=== PATIENT | male | born 1980 | race Caucasian/White ===

== ENCOUNTER 2020-03-18 16:32 | Emergency (ER) | payer MEDICARE, MEDICAID, SELFPAY ==
--- NOTE | ~2020-03-18 | XR_ITS ---
EXAMINATION: XR hand RT min 3V DATE: 03/18/2020 17:32 INDICATION: Right hand dog bite. TECHNIQUE: 3 views of right hand were obtained. COMPARISON: None. FINDINGS: Bone alignment is normal. No fracture. Joint spaces are well maintained. IMPRESSION: 1. No fracture or radiopaque foreign body. Reviewed, dictated and finalized at location A.
--- NOTE | ~2020-03-18 | XR_ITS ---
EXAMINATION: XR forearm RT 2V DATE: 03/18/2020 17:32 INDICATION: Right forearm dog bite. TECHNIQUE: 2 views of right forearm were obtained. COMPARISON: None. FINDINGS: Bone alignment is normal. No fracture. Joint spaces are well maintained. IMPRESSION: 1. No fracture or radiopaque foreign body. Reviewed, dictated and finalized at location A.
[2020-03-18 16:54] VITALS: BP 112/74; PULSE 78; RESP 16; TEMP 37.7; O2SAT 99
--- NOTE | 2020-03-18 17:05 | ED.GENADULT ---
HPI - General Adult General Chief complaint: Animal Bite Stated complaint: dog bite Time Seen by Provider: 03/18/20 17:06 Source: patient Mode of arrival: ambulatory Limitations: no limitations History of Present Illness HPI narrative: 39-year-old male patient presents to the [facility] with complaints of a dog bite to the right hand and right forearm that happened about midmorning this morning. Patient states that he does not know who the block dog belongs to. Patient states he knows he has had a tetanus shot within the last 10 years but unsure if it is been less than 5 years. Patient states that afterwards when the bite occurred he did go home and clean it with alcohol. Patient states he has increased pain starting distended along with decrease in range of motion to the right wrist and hand. Patient states he does take extended release morphine for chronic pain and did take an extra 1 today for pain. Related Data Home Medications Medication Instructions Recorded Confirmed atorvastatin 40 mg PO DAILY 03/18/20 03/18/20 clopidogrel 75 mg PO DAILY 03/18/20 03/18/20 labetalol 03/18/20 03/18/20 lamotrigine 100 mg PO HS 03/18/20 03/18/20 lamotrigine 150 mg PO DAILY 03/18/20 03/18/20 morphine 15 mg PO DAILY 03/18/20 03/18/20 morphine 30 mg PO DAILY 03/18/20 03/18/20 verapamil 120 mg PO DAILY 03/18/20 03/18/20 Allergies Allergy/AdvReac Type Severity Reaction Status Date / Time NSAIDS (Non-Steroidal AdvReac Unknown Verified 03/18/20 17:14 Anti-Inflamma Review of Systems Review of Systems: Narrative: CONSTITUTIONAL: Denies fever, chills, or sweats. EYES: Denies visual changes, redness, or discharge. ENT: Denies rhinorrhea, congestion, sore throat, or otalgia. CARDIOVASCULAR: Denies chest pain, palpitations, or edema. RESPIRATORY: Denies cough or dyspnea. GASTROINTESTINAL: Denies abdominal pain, nausea, vomiting, or diarrhea. GENITOURINARY: Denies dysuria or hematuria. SKIN: Denies rash or itching. Positive dog bite to right hand and right forearm MUSCULOSKELETAL: Denies back pain, joint pain, or myalgia. NEUROLOGIC: Denies headache, numbness, or weakness. PSYCHIATRIC: Denies anxiety or depression. PMFSH Past Medical History Medical History (Updated 03/18/20 @ 17:54 by KEILA Morgan) CVA (cerebral vascular accident) Musculoskeletal disorder Pain from fall all over chronic pain Neurologic abnormality Head injury 2010 Social History Social History Gender identity (if verbalized by the patient): Male Comments At the time of my signature I agree with nursing past medical history, surgical, social, and family history. There is no relevant family history pertinent to the presenting complaint. Exam Narrative: Exam Narrative: GENERAL: Well-appearing, well-nourished, and in no acute distress. HEAD: Normocephalic, atraumatic. EYES: PERRLA and EOMI. ENT: Nares clear, no rhinorrhea or epistaxis. Mucous membranes moist. NECK: Supple. No lymphadenopathy CHEST: Clear to auscultation. No respiratory distress. HEART: Regular rate and rhythm. No murmur heard. Normal peripheral pulses. ABDOMEN: Soft, nontender, nondistended, normal active bowel sounds. EXTREMITIES: The R hand is without obvious asymmetry or deformity when compared to the L hand. No swelling, erythema, atrophy, or obvious deformity. Patient has about 6 or 7 wounds to the dorsal side of the right hand. No deep wounds noted but does appear to be scabbed over. There is another wound to the palm side of the hand on the ulnar side that appears to be a puncture wound and another puncture wound noted to the right forearm on the ulnar side. No nail avulsion, tissue avulsion, partial or complete amputation, subungual hematoma, bony deformity. Normal cascade of fingers. Decreased flexion of right wrist, normal extension of fingers. FDS and FDP intact aganist restistance. No focal fullness, thobbing pain, swelli
[2020-03-18] MEDS: TETANUS,DIPHTHERIA,AC PERTUSSIS ADULT (0.5 ML) BOOSTRIX IM (17:34)
== END 2020-03-18 17:58 | disposition home or self-care (01) ==
PROVIDERS: Emergency Provider Nurse Practitioner Family; PCP Internal Medicine
DX: S61.451A Open bite of right hand, initial encounter (principal); S51.851A Open bite of right forearm, initial encounter; W54.0XXA Bitten by dog, initial encounter; Z23 Encounter for immunization; Z86.73 Personal history of transient ischemic attack (TIA), and cerebral infarction without residual deficits
CPT/HCPCS: 73090; 73130; 90471; 90715; 99213; G0463

== ENCOUNTER 2020-08-17 11:59 | Emergency (ER) | payer MEDICARE, MEDICAID, SELFPAY ==
--- NOTE | ~2020-08-17 | XR_ITS ---
XR wrist LT 2V DATE: 08/17/2020 13:19 INDICATION: Injury, pain TECHNIQUE: 2 lateral view COMPARISON: August 17, 2020 right hand FINDINGS: Normal alignment of the radius and ulna at the wrist joint is shown in this comparison view of the left wrist. IMPRESSION: Suspected posterior dislocation of the ulna at the right wrist Reviewed, dictated and finalized at location A. 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
--- NOTE | ~2020-08-17 | XR_ITS ---
XR hand RT min 3V DATE: 08/17/2020 12:37 INDICATION: Injury, pain TECHNIQUE: 3 views COMPARISON: 03/18/2020 right hand FINDINGS: There is suggestion of posterior dislocation of the ulna at the radial ulnar joint. Conside r repeat true lateral projection and comparison is of the left wrist as clinically appropriate. Otherwise no fracture or dislocation, periosteal reaction or bone destruction is evident. IMPRESSION: Possible posterior dislocation of the ulna at the wrist joint; recommend true lateral rep eat view and comparison views of left breast as clinically appropriate Reviewed, dictated and finalized at location A. RUNNER IMPRESSION: Possible posterior dislocation of the ulna at the wrist joint; duane mmend true lateral repeat view and comparison views of left breast as clinicall y appropriate
[2020-08-17 12:23] VITALS: BP 144/86; PULSE 73; RESP 16; TEMP 36.6; O2SAT 99
--- NOTE | 2020-08-17 12:40 | ED.UPPEXIN ---
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 He is on Plavix, blood pressure and cholesterol medication for stroke prevention. He has some slowness of speech but has good affect, he uses a cane to help him walk for both balance and endurance, states his chronic right-sided weakness. Related Data Home Medications Medication Instructions Recorded Confirmed atorvastatin 40 mg PO DAILY 08/17/20 08/17/20 clopidogrel 75 mg PO DAILY 08/17/20 08/17/20 lamotrigine 100 mg PO HS 08/17/20 08/17/20 lamotrigine 150 mg PO DAILY 08/17/20 08/17/20 morphine 15 mg PO DAILY 08/17/20 08/17/20 morphine 30 mg PO DAILY 08/17/20 08/17/20 pregabalin 150 mg PO DAILY 08/17/20 08/17/20 Allergies Allergy/AdvReac Type Severity Reaction Status Date / Time NSAIDS (Non-Steroidal AdvReac Severe Blister Verified 08/17/20 15:11 Anti-Inflamma Review of Systems Review of Systems: Narrative: CONSTITUTIONAL: Denies fever, chills, sweats. EYES: Denies visual changes, redness, discharge. ENT: Denies rhinorrhea, congestion, sore throat, otalgia. CARDIOVASCULAR: Denies chest pain, palpitations, edema. RESPIRATORY: Denies dyspnea, wheezing, cough GASTROINTESTINAL: Denies abdominal pain, nausea, vomiting, diarrhea. GENITOURINARY: Denies dysuria, hematuria, abnormal discharge SKIN: Denies rash or itching. NEUROLOGIC: Denies numbness, or focal weakness. PSYCHIATRIC: Denies anxiety or depression. Right wrist/hand pain due to torsion with wrench PMFSH Past Medical History Medical History CVA (cerebral vascular accident) Musculoskeletal disorder Pain from fall all over chronic pain Neurologic abnormality Head injury 2011 Social History Social History (Updated 08/17/20 @ 12:56 by Aleja Clement CNP) Smoking packs per day: 0.5 Smoking cigarettes per day: 10.0 Smoking status: Current every day smoker Alcohol intake: current Gender identity (if verbalized by the patient): Male Comments At time of signature, I agree with nursing past medical, surgical, social and family history. There is no relevant family history pertinent to the presenting complaint. Has diagnosis of hypertension and is on blood pressure medication Exam Narrative: Exam Narrative: GENERAL: This is a well-nourished, well-developed patient, in mild distress. HEAD: normocephalic, atraumatic. EYES: Sclera clear/white. Vision is grossly intact. EARS: External ears normal. Hearing grossly intact. NOSE: External nose normal without nasal discharge, nares without redness, no rhinorrhea. THROAT: Mucous membranes moist, NECK: Neck supple, non-tender CARDIOVASCULAR: Regular rate and rhythm without murmurs, gallops, or rubs. RESPIRATORY: Clear to auscultation. Breath sounds equal bilaterally. No wheezes, rales, or rhonchi. GASTROINTESTINAL: Abdomen soft, SKIN: warm, intact with no suspicious lesions or rash, good texture and turgor. NEURO: awake, alert, and oriented to person, place and time. There were no obvious focal neurologic abnormalities. Steady gait EXTREMITIES: Normal range of motion on L, R wrist- slow finger opposition, unable to flex wrist, pronate/suppinate BACK: Nontender without deformity Course Course Emergency Course: Patient came here after using a wrench last night to try to finish a project and heard a pop He felt pain and has increased weakness in the right hand- limited wrist movement as described above initial Annalisa lopez
== END 2020-08-17 14:05 | disposition short-term general hospital (02) ==
PROVIDERS: Emergency Provider Nurse Practitioner; PCP Internal Medicine
DX: S63.074A Dislocation of distal end of right ulna, initial encounter (principal); X58.XXXA Exposure to other specified factors, initial encounter; Z79.01 Long term (current) use of anticoagulants; Z87.820 Personal history of traumatic brain injury; Z86.73 Personal history of transient ischemic attack (TIA), and cerebral infarction without residual deficits
CPT/HCPCS: 73100; 73130; 99214; G0463

== ENCOUNTER 2020-08-17 14:24 | Emergency (ER) | payer MEDICARE, MEDICAID, SELFPAY ==
--- NOTE | ~2020-08-17 | XR_ITS ---
EXAMINATION: XR wrist RT min 3V DATE: 08/17/2020 15:33 INDICATION: Right wrist pain TECHNIQUE: Posteroanterior, ulnar deviation, oblique, and lateral views of the right wrist were obtai tello. COMPARISON: Right hand radiographs dated 03/18/2020 and 08/17/2020 FINDINGS: Alignment is normal. No fracture. Joint spaces are normal. Small bone island at the base of the fifth metacarpal. Soft tissues are unremarkable. IMPRESSION: 1. Negative right wrist radiographs. Reviewed, dictated and finalized at location A. 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
[2020-08-17 14:29] VITALS: BP 135/81; PULSE 71; RESP 18; TEMP 36.4; O2SAT 100
--- NOTE | 2020-08-17 15:27 | ED.GENADULT ---
HPI - General Adult General Chief complaint: Extremity Injury, Upper <Valerio Patel PA-C - Last Filed: 08/17/20 16:36> Stated complaint: right wrist pain <CLIFFORD Taylor Last Filed: 08/17/20 16:36> Time Seen by Provider: 08/17/20 14:43 <CLIFFORD Taylor Last Filed: 08/17/20 16:36> Source: patient, family and old records reviewed <CLIFFORD Taylor Last Filed: 08/17/20 16:36> Mode of arrival: ambulatory <CLIFFORD Taylor Last Filed: 08/17/20 16:36> Limitations: no limitations <CLIFFORD Taylor Last Filed: 08/17/20 16:36> History of Present Illness HPI narrative: Patient is a 40-year-old male who presents for evaluation of right wrist injury that occurred last night was using pliers and was turning them when he felt a pop in the wrist which she notes he has had historically with pain at the wrist joint. Patient with history of chronic disability to the right upper extremity from a brachial plexus injury from a trauma. Patient notes the range of motion and feeling are intact and consistent with his chronic findings. Patient takes morphine at home chronically. Patient on arrival resting comfortably in the room noting minimal pain <CLIFFORD Taylor Last Filed: 08/17/20 16:36> Related Data Home medications: Home Medications Medication Instructions Recorded Confirmed atorvastatin 40 mg PO DAILY 08/17/20 08/17/20 clopidogrel 75 mg PO DAILY 08/17/20 08/17/20 lamotrigine 100 mg PO HS 08/17/20 08/17/20 lamotrigine 150 mg PO DAILY 08/17/20 08/17/20 morphine 15 mg PO DAILY 08/17/20 08/17/20 morphine 30 mg PO DAILY 08/17/20 08/17/20 pregabalin 150 mg PO DAILY 08/17/20 08/17/20 <CLIFFORD Taylor Last Filed: 08/17/20 16:36> Allergies/adverse reactions: Allergies Allergy/AdvReac Type Severity Reaction Status Date / Time NSAIDS (Non-Steroidal AdvReac Severe Blister Verified 08/17/20 15:11 Anti-Inflamma <Valerio Patel PA-C - Last Filed: 08/17/20 16:36> Review of Systems Review of Systems: All systems reviewed & are unremarkable except as noted in HPI and below <Valerio Patel PA-C - Last Filed: 08/17/20 16:36> PMFSH Past Medical History Medical History: Medical History CVA (cerebral vascular accident) Musculoskeletal disorder Pain from fall all over chronic pain Neurologic abnormality Head injury 2010 <Valerio Patel PA-C - Last Filed: 08/17/20 16:36> Social History Social History: Social History Smoking packs per day: 0.5 Smoking cigarettes per day: 10.0 Smoking status: Current every day smoker Alcohol intake: current Gender identity (if verbalized by the patient): Male <Valerio Patel PA-C - Last Filed: 08/17/20 16:36> Exam Narrative: Exam Narrative: GENERAL: Well-appearing, well-nourished, and in no acute distress. HEAD: Normocephalic, atraumatic. EYES: PERRLA and EOMI. ENT: Nares clear, no rhinorrhea or epistaxis. Mucous membranes moist. ABDOMEN: Soft, nontender, nondistended EXTREMITIES: Tenderness of the right wrist radial and ulna no obvious deformity SKIN: Warm, dry, no rash. NEURO: No focal deficits. Alert and oriented x3. Cranial nerves II through XII grossly intact. Neurovascularly intact PSYCH: Normal mood and affect. <Valerio Patel PA-C - Last Filed: 08/17/20 16:36> Course Course Emergency Course: Dedicated wrist radiographs were obtained which were not done at the urgent care showing that there is no dislocation or subluxation patient will be splinted precautionary dickinson and follow-up with primary care and orthopedic surgery <Valerio Patel PA-C - Last Filed: 08/17/20 16:36> Consultations Consultation #1: Discussed case with orthopedic surgery who recommends putting the patient in a short arm OCL and following up w
[2020-08-17 16:51] VITALS: BP 129/72; PULSE 68; RESP 18; TEMP 36.8; O2SAT 100
== END 2020-08-17 17:22 | disposition home or self-care (01) ==
PROVIDERS: Emergency Provider General Practice; PCP Internal Medicine
DX: M25.531 Pain in right wrist (principal); Z86.73 Personal history of transient ischemic attack (TIA), and cerebral infarction without residual deficits; G89.21 Chronic pain due to trauma; F17.210 Nicotine dependence, cigarettes, uncomplicated; Z87.820 Personal history of traumatic brain injury; X50.9XXA Other and unspecified overexertion or strenuous movements or postures, initial encounter
CPT/HCPCS: 73100; 73110; 73130; 99283

== ENCOUNTER 2020-08-30 07:59 | Outpatient (RCR) | payer MEDICARE, MEDICAID, SELFPAY ==
--- NOTE | 2020-08-30 09:07 | OTOPEVAL ---
OCCUPATIONAL THERAPY EVALUATION REPORT AND DISCHARGE SUMMARY 08/30/20 Cahrles is a 40 year-old, right hand dominant male that presents to outpatient OT with right wrist sprain. He has been instructed in a splint wearing schedule, using ice for pain, active ROM, and splint weaning schedule (in 4 weeks). Instructed in follow up recommendations in 4 weeks if the immobilization period does not help with his pain. He verbalizes his understanding all material. No further skilled OT indicated at this time. Thank you for referring Charles Gordon to [facility].?Please review, sign, date and return this Discharge Summary SHIVANI. I agree with and certify that the following plan of care is medically necessary. Referring Physician Date Referring Provider: Darwin Noel MD *OT Outpatient Evaluation Start: 08/30/20 08:08 Therapy Assessment Status Assessment Status Assessment Status Evaluation Outpatient Past Medical History Neurological History Hx Cerebrovascular Accident (CVA) Yes: several Hx Other Neurological Disorders Yes: head injury, TBI, right brachial plexus injury Cardiovascular History Hx Hypercholesterolemia Yes Hx Hypertension Yes Respiratory History Hx Respiratory Disorders No Significant History Gastrointestinal History Hx Gastrointestinal Disorders No Significant History Musculoskeletal History Hx Arthritis Yes Hx Crutches or Walker Use Yes: cane Query Text:If Yes, Enter Crutches, Walker, or Both in the Comment Hematological History Hx Hematological Disorders No Significant History Endocrine History Hx Endocrine Disorders No Significant History HEENT History Hx HEENT Disorders No Significant History Integumentary History Hx Skin Disorders No Significant History Reproductive History Hx Reproductive Disorders No Significant History Psychosocial History Hx Anxiety Yes Hx Depression Yes Pain History Has Past Pain Affected Your Daily Life Yes: takes morphine daily History of Long-Term Prescription Pain Yes: traumatic brain surgery Medication Use (Opiates) Evaluation Information Problem Diagnosis (R) wrist sprain Onset 08/17/20 Subjective Information Patient reports he was Query Text:As Reported By Patient/ gripping pliers and twisting Family with the wrist when he felt a pop in the wrist. He was evaluated at the ED and x-rays of the wrist and hand were negative for acute fracture. He has not had further imaging to rule out ligamentous tears. He followed up with an orthopedic surgeon which recommended immobilization and
== END 2020-11-13 09:12 | disposition home or self-care (01) ==
LOC: ANHOT 07:59
PROVIDERS: PCP Internal Medicine; Visit Provider Orthopaedic Surgery
DX: M25.531 Pain in right wrist (principal); S63.501D Unspecified sprain of right wrist, subsequent encounter
CPT/HCPCS: 97165

== ENCOUNTER 2020-10-10 14:33 | Outpatient (CLI) | payer MEDICARE, MEDICAID, SELFPAY ==
--- NOTE | ~2020-10-10 | MR_ITS ---
EXAMINATION: MR wrist RT w con DATE: 10/10/2020 16:10 INDICATION: Right wrist pain TECHNIQUE: Magnetic resonance imaging (MRI) of the right wrist was performed without intravenous cont rast but following intra-articular injection of a gadolinium contrast mixture. Details of the joint i njection have been dictated separately. Sequences performed include axial, sagittal and coronal T2-we ighted FS FSE, coronal T1-weighted FS FSE, axial T1-weighted SE, sagittal and coronal T1-weighted FS FSE and coronal FGRE 3D. COMPARISON: None FINDINGS: Intrinsic ligaments: The scapholunate ligament is normal. There is a tear of the central portion of the lunotriquetral lig ament with contrast extending extending into the midcarpal, triscaphe and second and third carpometac arpal joints. The dorsal and volar bands of the lunotriquetral ligament remain intact. Triangular fibrocartilage complex (TFCC): The triangular fibrocartilage including its foveal and styloid attachments as well as the dorsal and volar radioulnar ligaments are normal. The ulnar collateral ligament, ulnotriquetral ligament and men iscal homologue are normal. There is a tear of the extensor carpi ulnaris (ECU) subsheath along the e xtensor carpi ulnaris tendon to sublux over the ulnar rim of the ECU groove. Extensor wrist: Small amount of noncontrast enhanced fluid in the second dorsal compartment consistent mild tenosynov itis extending along the otherwise normal extensor carpi radialis longus and brevis tendons. Similar small amount of fluid consistent with mild tenosynovitis in the third dorsal compartment along the no rmal-appearing extensor pollicis longus tendon. Remaining extensor tendons of the wrist are normal. Flexor wrist: The flexor tendons of the wrist are normal. No abnormality in the carpal tunnel with normal median n erve. Guyon's canal: Guyon's canal including the ulnar nerve and artery are normal. Bones/other: Small low signal intensity bone islands at the base of the fifth metacarpal and at the distal pole of the scaphoid. Normal marrow signal. No fracture, erosions, avascular necrosis or pathologic marrow r eplacing process. Joint spaces are normal with no focal cartilage defects appreciated. IMPRESSION: 1. Tenosynovitis in the second and third dorsal compartments along the otherwise normal-appearing ext ensor carpi radialis longus and brevis and extensor pollicis longus tendons which can be seen with di stal intersection syndrome. 2. Small tear of the central portion of the lunotriquetral ligament with intact appearing dorsal and volar components of the ligament. 3. Tear of the extensor carpi ulnaris subsheath with ulnar subluxation of the tendon across the ulnar rim of the ECU groove with no evident tendinopathy, tendon tear or tenosynovitis. Reviewed, dictated and finalized at location B. IMPRESSION: 1. Tenosynovitis in the second and third dorsal compartments along the otherwis e normal-appearing extensor carpi radialis longus and brevis and extensor polli cis longus tendons which can be seen with distal intersection syndrome. 2. Small tear of the central portion of the lunotriquetral ligament with intact appearing dorsal and volar components of the ligament. 3. Tear of the extensor carpi ulnaris subsheath with ulnar subluxation of the t endon across the ulnar rim of the ECU groove with no evident tendinopathy, tend on tear or tenosynovitis.
--- NOTE | ~2020-10-10 | XR_ITS ---
EXAMINATION: XR md joint inject/asp w image DATE: 10/10/2020 15:41 INDICATION: Right wrist pain. TECHNIQUE: A time-out was performed to verify the patient's name, date of , and procedure to b e performed. The procedure including the risks, benefits, and alternatives was discussed with the pat ient. Risks discussed included bleeding and infection. The patient understood the risks and agreed to proceed. The skin overlying the right radioscaphoid joint was prepped and draped in usual sterile fa shion. Anesthetic was administered with 1% lidocaine subcutaneously. A 22 G needle was advanced und er fluoroscopic guidance into the joint. Subsequently, injectate consisting of 2 mL of 1:200 Multiha nce and 1:2 Omnipaque 240 was instilled. The needle was removed and the entry site was cleaned and d ressed. There were no immediate complications. Fluoroscopy exposure time was 0.1 minutes. The total number of images was 2. FINDINGS: Real-time fluoroscopy demonstrates the needle and contrast in the right radioscaphoid joint . IMPRESSION: 1. Successful right radioscaphoid joint injection of contrast for subsequent MR arthrography. Reviewed, dictated and finalized at location A.
== END 2020-10-10 14:34 | disposition home or self-care (01) ==
LOC: ANHIMG 14:40
PROVIDERS: PCP Internal Medicine; Visit Provider Orthopaedic Surgery
DX: M65.841 Other synovitis and tenosynovitis, right hand (principal)
CPT/HCPCS: 20605; 73222; 77002; A9577; Q9966

== ENCOUNTER 2021-07-18 19:09 | Emergency (ER) | payer MEDICARE, MEDICAID, SELFPAY ==
--- NOTE | 2021-07-18 19:15 | ED.EYEPROB ---
HPI - Eye Problem General Chief complaint: Eye Problems Stated complaint: Foreign object in eye Time Seen by Provider: 07/18/21 19:45 Source: patient and RN notes reviewed Mode of arrival: ambulatory Limitations: no limitations History of Present Illness HPI Narrative: 40-year-old male presents with concern for right eye pain. He reports prior to arrival he was making a cat litter box out of a [employer] tote when a piece of the plastic flew up and hit him in the eye. He reports pain and feeling of foreign body. He has covered the eye with a bandage so he is not able to determine if he has had vision changes. chief complaint: eye pain Related Data Home Medications Medication Instructions Recorded Confirmed atorvastatin 40 mg PO DAILY 08/17/20 10/02/20 clopidogrel 75 mg PO DAILY 08/17/20 10/02/20 lamotrigine 100 mg PO HS 08/17/20 10/02/20 lamotrigine 150 mg PO DAILY 08/17/20 10/02/20 morphine 15 mg PO DAILY 08/17/20 10/02/20 morphine 30 mg PO DAILY 08/17/20 10/02/20 pregabalin 150 mg PO DAILY 08/17/20 10/02/20 jsepfurqxm-vimbtblylnxpt-doog tablet 07/18/21 tizanidine mg 07/18/21 verapamil mg PO 07/18/21 Allergies Allergy/AdvReac Type Severity Reaction Status Date / Time NSAIDS (Non-Steroidal AdvReac Severe Blister Verified 08/17/20 15:11 Anti-Inflamma Review of Systems Review of Systems: CONSTITUTIONAL: Denies malaise, chills, sweats, or fever. EYES: Denies visual changes. Reports right eye redness and pain ENT: Denies rhinorrhea, congestion, sinus pain, otalgia or sore throat. SKIN: Denies rash or itching. NEUROLOGIC: Denies numbness, weakness, or headache. PSYCHIATRIC: Denies anxiety or depression. 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 There is no relevant family history pertinent to the presenting complaint Exam Narrative: GENERAL: Well-appearing, well-nourished, and in no acute distress. HEAD: Normocephalic, atraumatic. EYES: Left PERRLA, sclera clear, and EOMI. right sclera and conjunctivae injected. Upper and lower eyelid unremarkable, no periorbital edema noted. No foreign body noted. Corneal abrasion noted on Torres lamp exam, see note ENT: Nares clear, turbinates pink, no rhinorrhea or epistaxis. Mucous membranes moist. TM pearly babcock with sharp light reflex bilaterally; no tragal tenderness. NECK: Supple. CHEST: No respiratory distress. Speaks in full sentences. HEART: Regular rate and rhythm. SKIN: Warm, dry, no visible rash. NEURO: Alert and oriented x3. PSYCH: Normal mood and affect Course Course Emergency Course: Patient is aware of diagnosis, understands and agrees to treatment plan. Anticipatory guidance given. Patient agrees to follow-up as directed and is aware of reasons to seek care at the emergency department. Portions of this record may have been created with voice recognition software Level of Care: Express Care Visit Vital Signs Vital signs: Vital Signs Temperature 98.0 F 07/18/21 19:48 Pulse Rate 77 07/18/21 19:48 Respiratory Rate 16 07/18/21 19:48 Blood Pressure 104/85 07/18/21 19:48 Pulse Oximetry
[2021-07-18 19:48] VITALS: BP 104/85; PULSE 77; RESP 16; TEMP 36.7; O2SAT 100
--- NOTE | 2021-07-18 20:02 | PC.NURSE ---
1950 eye kit at bedside.
== END 2021-07-18 20:14 | disposition home or self-care (01) ==
PROVIDERS: Emergency Provider Nurse Practitioner; PCP Internal Medicine
DX: S05.02XA Injury of conjunctiva and corneal abrasion without foreign body, left eye, initial encounter (principal); W20.8XXA Other cause of strike by thrown, projected or falling object, initial encounter; F17.210 Nicotine dependence, cigarettes, uncomplicated; M19.90 Unspecified osteoarthritis, unspecified site; Z86.73 Personal history of transient ischemic attack (TIA), and cerebral infarction without residual deficits; Z85.9 Personal history of malignant neoplasm, unspecified
CPT/HCPCS: 99213; A9270; G0463

== ENCOUNTER 2021-09-12 18:01 | Emergency (ER) | payer MEDICARE, MEDICAID, SELFPAY ==
[2021-09-12 18:17] VITALS: BP 117/78; PULSE 71; RESP 16; TEMP 36.2; O2SAT 99
--- NOTE | 2021-09-12 18:42 | ED.WOUNDLAC ---
HPI - Wound/Laceration General Chief Complaint: Wound/Laceration Stated Complaint: Splinter in finger Time Seen by Provider: 09/12/21 18:15 Source: patient Mode of arrival: ambulatory Limitations: no limitations History of Present Illness HPI narrative: Charles Gordon is a 41 yo male with a PMH of bipolar disorder and chronic pain who comes to [facility] with complaints of a splinter in his third right proximal digit of his finger that occurred this morning, there is a tiny dot that could be an entry hole but there is no evidence of a splinter that is visible from the surface and patient states it is painful to press on Related Data Home Medications Medication Instructions Recorded Confirmed lamotrigine 100 mg PO HS 08/17/20 10/02/20 lamotrigine 150 mg PO DAILY 08/17/20 10/02/20 morphine 15 mg PO DAILY 08/17/20 10/02/20 morphine 30 mg PO DAILY 08/17/20 10/02/20 pregabalin 150 mg PO DAILY 08/17/20 10/02/20 vmemvrksdo-qyxfkxadxorre-kovw tablet 07/18/21 tizanidine mg 07/18/21 Allergies Allergy/AdvReac Type Severity Reaction Status Date / Time NSAIDS (Non-Steroidal AdvReac Severe Blister Verified 08/17/20 15:11 Anti-Inflamma Review of Systems Review of Systems: CONSTITUTIONAL: Denies fever, chills, sweats. EYES: Denies visual changes, redness, discharge. ENT: Denies rhinorrhea, congestion, sore throat, otalgia. CARDIOVASCULAR: Denies chest pain, palpitations, edema. RESPIRATORY: Denies dyspnea, wheezing, cough GASTROINTESTINAL: Denies abdominal pain, nausea, vomiting, diarrhea. GENITOURINARY: Denies dysuria, hematuria, abnormal discharge SKIN: Denies rash or itching. Patient states there is a 1 cm splinter in the palmar side of his third right finger NEUROLOGIC: Denies numbness, or focal weakness. PSYCHIATRIC: Denies anxiety or depression. 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 There is no relevant family history pertinent to the presenting complaint. Exam Narrative: GENERAL: This is a well-nourished, well-developed patient, in mild distress. HEAD: normocephalic, atraumatic. EYES: Sclera clear/white. Vision is grossly intact. EARS: External ears normal, Hearing grossly intact. NOSE: External nose normal without nasal discharge, nares without redness, no rhinorrhea. THROAT: Mucous membranes moist, NECK: Neck supple, CARDIOVASCULAR: Regular rate and rhythm without murmurs, gallops, or rubs. RESPIRATORY: Clear to auscultation. Breath sounds equal bilaterally. No wheezes, rales, or rhonchi. GASTROINTESTINAL: Not done SKIN: warm, intact with .. palmar side of proximal digit where splinter supposedly answered. NEURO: awake, alert, and oriented to person, place and time. There were no obvious focal neurologic abnormalities. Steady gait EXTREMITIES: Normal range of motion. BACK: Nontender without deformity Course Course Emergency Course: Patient here with small 1 cm splinter to right middle finger proximal digit palmar side Finger soaked for 15 minutes and peroxide and water and attempted to locate splinter there is no indication of foreign object on the superficial part of his finger although he says it is down deep in his
== END 2021-09-12 19:15 | disposition home or self-care (01) ==
PROVIDERS: Emergency Provider Nurse Practitioner; PCP Internal Medicine
DX: S61.242A Puncture wound with foreign body of right middle finger without damage to nail, initial encounter (principal); W45.8XXA Other foreign body or object entering through skin, initial encounter; M19.90 Unspecified osteoarthritis, unspecified site; Z86.73 Personal history of transient ischemic attack (TIA), and cerebral infarction without residual deficits; Z85.9 Personal history of malignant neoplasm, unspecified; F17.210 Nicotine dependence, cigarettes, uncomplicated
CPT/HCPCS: 99212; G0463

== ENCOUNTER 2022-03-09 11:15 | Emergency (ER) | payer MEDICARE, MEDICAID, SELFPAY ==
[2022-03-09 11:24] VITALS: BP 114/76; PULSE 83; RESP 16; TEMP 36.8; O2SAT 100
[2022-03-09 11:25] VITALS: BP 114/76; PULSE 83; RESP 16; TEMP 36.8; O2SAT 100
--- NOTE | 2022-03-09 11:45 | ED.EAR ---
HPI - Ear Problem General Chief complaint: Ear Stated complaint: ear pain Source: patient Mode of arrival: ambulatory Limitations: no limitations History of Present Illness HPI Narrative: Patient presents for evaluation of left-sided ear pain for the last 2 to 3 days. He states he had similar pain in the middle of February after going down to [place] and being in a pool. He saw his primary care provider who gave him a prescription for otic antibiotics. These seem to help. He had recurrence of pain within the last 2 to 3 days. He states that hearing loss preceded the pain by a day. He states he hears white noise at the present time. No fever, chills, sore throat, drainage from the ear. He smokes approximately 1 pack/day. Related Data Home Medications Medication Instructions Recorded Confirmed lamotrigine 100 mg tablet 100 mg PO HS 08/17/20 03/09/22 lamotrigine 150 mg tablet 150 mg PO DAILY 08/17/20 03/09/22 morphine 15 mg immediate release 15 mg PO DAILY 08/17/20 03/09/22 tablet morphine 30 mg tablet,extended 30 mg PO DAILY 08/17/20 03/09/22 release pregabalin 150 mg capsule 150 mg PO DAILY 08/17/20 03/09/22 roymfgaenx-zplkyxmvvvqhw-jsydntat 1 tablet PO DAILY 07/18/21 03/09/22 50 mg-325 mg-40 mg tablet tizanidine 4 mg tablet 4 mg PO DAILY 07/18/21 03/09/22 Allergies Allergy/AdvReac Type Severity Reaction Status Date / Time NSAIDS (Non-Steroidal AdvReac Severe Blister Verified 03/09/22 11:21 Anti-Inflamma Review of Systems Review of Systems: CONSTITUTIONAL: Denies fever, chills, or sweats. EYES: Denies visual changes, redness, or discharge. ENT: Reports left-sided ear pain with associated hearing loss and white noise . Denies rhinorrhea, congestion, sore throat CARDIOVASCULAR: Denies chest pain, palpitations, or edema. RESPIRATORY: Denies cough or dyspnea. GASTROINTESTINAL: Denies abdominal pain, nausea, vomiting, or diarrhea. GENITOURINARY: Denies dysuria or hematuria. SKIN: Denies rash or itching. MUSCULOSKELETAL: Denies back pain, joint pain, or myalgia. NEUROLOGIC: Denies headache, numbness, dizziness, or weakness. PSYCHIATRIC: Denies anxiety or depression. [facility] Past Medical History Medical History Arthritis Cancer CVA (cerebral vascular accident) Headache Musculoskeletal disorder Pain from fall all over chronic pain Neurologic abnormality Head injury 2011 Surgical History Surgical History H/O foot surgery H/O shoulder surgery Family History Family History Mother Family history non-contributory Social History Social History (Updated 03/09/22 @ 11:[address] 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 HEAD: Normocephalic, atraumatic. EYES: PERRLA and EOMI. ENT: Nares clear, no rhinorrhea or epistaxis. Mucous membranes moist. Oropharynx without tonsillar hypertrophy exudate or other lesions. Left ear canal is edematous with white exudate in ear canal. I am unable to visualize left TM NECK: Supple. No adenopathy or masses. No carotid bruits or JVD CHEST: Clear to auscultation. No respiratory distress. No wheezes rales or rhonchi HEART: Regular rate and rhythm. No murmur heard. Normal peripheral pulses. ABDOMEN: Soft, nontender, nondistended, normal active bowel sounds. EXTREMITIES: Normal range of motion. No edema. SKIN: Warm
== END 2022-03-09 11:50 | disposition home or self-care (01) ==
PROVIDERS: Emergency Provider Nurse Practitioner
DX: H66.92 Otitis media, unspecified, left ear (principal); H60.92 Unspecified otitis externa, left ear; F17.210 Nicotine dependence, cigarettes, uncomplicated; M19.90 Unspecified osteoarthritis, unspecified site; Z86.73 Personal history of transient ischemic attack (TIA), and cerebral infarction without residual deficits; Z85.9 Personal history of malignant neoplasm, unspecified; G89.29 Other chronic pain
CPT/HCPCS: 99213; G0463

== ENCOUNTER 2022-04-28 14:00 | Emergency (ER) | payer MEDICARE, MEDICAID, SELFPAY ==
--- NOTE | ~2022-04-28 | XR_ITS ---
XR chest 2V DATE: 04/28/2022 14:26 INDICATION: Chest pain TECHNIQUE: AP and lateral views COMPARISON: 02/01/2015 PA and lateral chest FINDINGS: Normal heart size. No hilar or mediastinal enlargement. No pulmonary infiltrate or consolid ation, pleural effusion or pulmonary vascular congestion or pneumothorax. Included skeletal structures are unremarkable. IMPRESSION: No active cardiopulmonary disease Reviewed, dictated and finalized at location [facility].
--- NOTE | ~2022-04-28 | CT_ITS ---
EXAMINATION: CT brain wo con DATE: 04/28/2022 15:33 INDICATION: Fall. Previous fall from left. Residual deficits. TECHNIQUE: Computed tomography (CT) of the head was performed without intravenous contrast. The mA wa s adjusted according to patient size. Iterative reconstruction technique was employed. Exam dose: 68 1.00 mGy-cm total exam DLP. COMPARISON: None FINDINGS: No intracranial mass lesion or hemorrhage or cerebrovascular accident is detected. No midli ne shift or mass effect. Normal ventricular size. Normal babcock-white matter differentiation. No subdur al or epidural hematoma. There is mildly compressive thickening along the lateral wall the right maxillary sinus. The mastoid air cells and included paranasal sinuses are otherwise unremarkable. No fracture or bone destruction of the cranial vault. IMPRESSION: No significant intracranial abnormality Reviewed, dictated and finalized at [facility]. Reviewed, dictated and finalized at location [facility].
[2022-04-28 14:00] VITALS: BP 123/77; PULSE 75; RESP 18; TEMP 36.6; O2SAT 99
--- NOTE | 2022-04-28 14:10 | ECG_ITS ---
Measurements Intervals [place] Rate: 67 P: 27 AL: 184 QRS: 69 QRSD: 89 T: 55 QT: 374 QTc: 396 Interpretive Statements SINUS RHYTHM NO PREVIOUS ECG AVAILABLE FOR COMPARISON Electronically Signed On 04-28-2022 16:26:21 CDT by Brayan Vidales M.D.
[2022-04-28 14:52] LABS: Basophils Absolute Auto 0.2 K/mm3 (0.0-0.1); Basophils Percent Auto 1.1 % (0.2-1.2); Eosinophils Absolute Auto 0.3 K/mm3 (0-0.3); Eosinophils Percent Auto 1.9 % (0-4.4); Hematocrit 44.9 % (42.0-52.0); Hemoglobin 15.6 g/dL (14.0-18.0); Immature Granulocyte Absolute 0.09 K/mm3 (0.00-0.031); Immature Granulocyte Percent A 0.6 % (0-0.5); Lymphocytes Absolute Auto 4.98 K/mm3 (0.9-3.2); Mean Corpuscular HGB Conc 34.7 g/dl (32-36); Mean Corpuscular Hemoglobin 29.3 pg (26-34); Mean Corpuscular Volume 84.4 fl (80-100); Mean Platelet Volume 9.9 fl (7.4-10.4); Monocytes Absolute Auto 0.6 K/mm3 (0.1-0.6); Monocytes Percent Auto 4.1 % (2.6-8.5); Neutrophils Percent Auto 59.3 % (45.5-73.1); Platelet Count Result 309 k/mm3 (150-375); Red Blood Count 5.32 M/mm3 (4.6-6.20); Red Cell Distribution Width 14.1 % (11.5-14.5); White Blood Count 15.1 K/mm3 (4.5-10.0)
[2022-04-28 15:07] LABS: INR 1.1; Prothrombin Time 13.5 Seconds (11.1-14.7)
[2022-04-28 15:08] LABS: Alanine Aminotransferase 20 U/L (6-50); Albumin Level 4.5 g/dL (3.5-5.1); Alkaline Phosphatase 60 U/L (38-126); Anion Gap 13 mmol/L (8-16); Aspartate Amino Transferase 22 U/L (17-59); Bilirubin,Total 0.3 mg/dL (0.2-1.3); Blood Urea Nitrogen 10 mg/dL (9-20); Calcium 9.5 mg/dL (8.4-10.2); Carbon Dioxide 24 mmol/L (22-30); Chloride 103 mmol/L (98-107); Estimated CRCL calculation 108 ml/min; Estimated Glomerular Filt Rate > 60; Glucose 102 mg/dL (65-110); Lipase 71 U/L (23-300); Potassium 3.8 mmol/L (3.4-5.0); Sodium 140 mmol/L (137-145)
--- NOTE | 2022-04-28 15:15 | ED.GENADULT ---
HPI - General Adult General Chief complaint: Chest Pain Stated complaint: heart pain Time Seen by Provider: 04/28/22 14:05 History of Present Illness HPI narrative: This is a 41-year-old male with history of traumatic brain injury presenting ED with chest pain. Patient has a complicated medical history due to his TBI. Communication is limited due to his TBI. Patient says that starting at 12 pm he started to have chest pain on the sternum that radiates to his right arm and neck. He was sitting on the porch smoking a cigarette when it happened. It is 10/10 intensity. Pain is constant and getting worse. He says he has never experienced pain like this before there are no exacerbating or alleviating factors. His is in the room says that he has episodes of chest pain approximately once a month. 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 The patient denies diaphoresis, nausea vomiting or exertional component to his pain. The patient took 75 mg of morphine this morning for right-sided body pain. The patient has mild right-sided weakness which occurs when he has his migraines. Patient states that he had a migraine this morning Patients Neurologist is Dr. Willard. Related Data Home Medications Medication Instructions Recorded Confirmed lamotrigine 100 mg tablet 100 mg PO HS 08/17/20 03/09/22 lamotrigine 150 mg tablet 150 mg PO DAILY 08/17/20 03/09/22 morphine 15 mg immediate release 15 mg PO DAILY 08/17/20 03/09/22 tablet morphine 30 mg tablet,extended 30 mg PO DAILY 08/17/20 03/09/22 release pregabalin 150 mg capsule 150 mg PO DAILY 08/17/20 03/09/22 cejpegivox-pzjmhiufhkfsr-uxwykcza 1 tablet PO DAILY 07/18/21 03/09/22 50 mg-325 mg-40 mg tablet tizanidine 4 mg tablet 4 mg PO DAILY 07/18/21 03/09/22 Allergies Allergy/AdvReac Type Severity Reaction Status Date / Time NSAIDS (Non-Steroidal AdvReac Severe Blister Verified 03/09/22 11:21 Anti-Inflamma Review of Systems Review of Systems: CONSTITUTIONAL: Denies night sweats. EYES: No eye pain ENT: Denies rhinorrhea CARDIOVASCULAR: Denies palpitations RESPIRATORY: Denies hemoptysis GASTROINTESTINAL: Denies hematemesis GENITOURINARY: Denies hematuria. SKIN: Denies rash MUSCULOSKELETAL: Denies myalgia. NEUROLOGIC: Denies weakness. 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 Head atraumatic. EYES: PERRLA/EOMI, NOSE: Normal no drainage NECK: Supple, Trachea midline RESPIRATORY: CTAB, No increased work of breathing. CARDIOVASCULAR: S1S2 appreciated ABDOMINAL: Soft, nontender, nondistended, MUSCULOSKELETAl: No obvious deformities NEURO: Alert. cranial nerves 2-12 grossly intact. Strength in the right arm and right leg is 4/5, strength in the left arm left leg is 5/5. decreased sensation in the right leg. patient has intention tremor of the right arm, c
[2022-04-28 15:19] LABS: Troponin I < 0.012 ng/mL (0.000-0.034)
[2022-04-28 16:00] VITALS: BP 128/80; PULSE 82; RESP 16; TEMP 36.8; O2SAT 100
[2022-04-28] MEDS: methocarbamoL 750 MG TABLET 1500 MG PO (16:19)
[2022-04-28 17:00] VITALS: BP 122/68; PULSE 60; RESP 16; O2SAT 100
== END 2022-04-28 17:12 | disposition home or self-care (01) ==
PROVIDERS: Emergency Provider Emergency Medicine; PCP Internal Medicine
DX: R07.89 Other chest pain (principal); G43.109 Migraine with aura, not intractable, without status migrainosus; S09.90XS Unspecified injury of head, sequela; R29.818 Other symptoms and signs involving the nervous system; M19.90 Unspecified osteoarthritis, unspecified site; F17.210 Nicotine dependence, cigarettes, uncomplicated; Z86.73 Personal history of transient ischemic attack (TIA), and cerebral infarction without residual deficits; X58.XXXS Exposure to other specified factors, sequela
CPT/HCPCS: 36415; 70450; 71046; 80053; 83690; 84484; 85025; 85610; 85730; 93005; 96365; 99284; A9270; J0131

== ENCOUNTER 2024-11-10 10:42 | Emergency (ER) | payer MEDICARE, BC, SELFPAY ==
[2024-11-10 10:56] VITALS: BP 121/78; PULSE 80; RESP 16; TEMP 36.4; O2SAT 99
--- NOTE | 2024-11-10 11:06 | ED.GENADULT ---
HPI - General Adult General Chief complaint: Skin/Abscess/Foreign Body Stated complaint: Rash/Skin Issues Time Seen by Provider: 11/10/24 11:06 Source: patient Mode of arrival: ambulatory Limitations: no limitations History of Present Illness HPI narrative: 44-year-old male presents with complaint of itchy rash for several weeks. Patient starts that rash started as a larger oval spot to his back and then spread with smaller oval spots. Nonpainful. All systems reviewed and negative except as noted above. Related Data Home Medications ?Medication ?Instructions ?Recorded ?Confirmed ?Last Taken ?Type lamotrigine 150 mg tablet 150 mg PO DAILY 08/17/20 03/09/22 Unknown History pregabalin 150 mg capsule 150 mg PO DAILY 08/17/20 03/09/22 Unknown History vldzastzke-uaqlvnfsltnod-fwuzvwof 1 tablet PO DAILY 07/18/21 03/09/22 Unknown History 50 mg-325 mg-40 mg tablet tizanidine 4 mg tablet 4 mg PO DAILY 07/18/21 03/09/22 Unknown History divalproex 125 mg tablet,delayed mg PO 11/10/24 Unknown History release topiramate 25 mg tablet mg 11/10/24 Unknown History tramadol 50 mg tablet mg 11/10/24 Unknown History Allergies Allergy/AdvReac Type Severity Reaction Status Date / Time NSAIDS (Non-Steroidal AdvReac Severe Blister Verified 11/10/24 10:55 Anti-Inflamma Review of Systems Review of Systems: CONSTITUTIONAL: Denies fever, chills, or sweats. EYES: Denies visual changes, redness, or discharge. ENT: Denies rhinorrhea, congestion, sore throat, or otalgia. CARDIOVASCULAR: Denies chest pain, palpitations, or edema. RESPIRATORY: Denies cough or dyspnea. GASTROINTESTINAL: Denies abdominal pain, nausea, vomiting, or diarrhea. GENITOURINARY: Denies dysuria or hematuria. SKIN: Reports rash and itching. MUSCULOSKELETAL: Denies back pain, joint pain, or myalgia. NEUROLOGIC: Denies headache, numbness, or weakness. PSYCHIATRIC: Denies anxiety or depression. All other systems reviewed are negative, except as documented in HPI. [facility] Past Medical History Medical History Arthritis Cancer CVA (cerebral vascular accident) Headache Musculoskeletal disorder Pain from fall all over chronic pain Neurologic abnormality Head injury 2011 Surgical History Surgical History H/O foot surgery H/O shoulder surgery Family History Family History Mother Family history non-contributory Social History Social History Smoking packs per day: 1 Smoking cigarettes per day: 20.0 Smoking status: Current every day smoker Alcohol intake: current Substance use: never Living arrangements: with family Occupation/Education: occupation 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 There is no relevant family history pertinent to the presenting complaint. Exam Narrative: GENERAL: This is a well-nourished, well-developed patient, in no apparent distress. HEAD: normocephalic, atraumatic. EYES: PERRL. Sclera clear/white. Vision is grossly intact. EARS: External ears normal NOSE: External nose normal NECK: Neck supple, non-tender without lymphadenopathy, masses or thyromegaly. CARDIOVASCULAR: Regular rate and rhythm without murmurs, gallops, or rubs. RESPIRATORY: Clear to auscultation. Breath sounds equal bilaterally. No wheezes, rales, or rhonchi. SKIN: warm, Dry, intact , good texture and turgor. herald spot to middle of back approximately 5 x 4cm With several smaller oval shaped scaly lesions to trunk upper portion of bilateral upper extremities and upper thighs. None to neck or face. No swelling, drainage or tenderness. NEURO: awake, alert, and oriented to person, place and time. There were no obvious focal neurologic abnormalities. EXTREMITIES: No joint tenderness, effusion, or edema noted. Course Course Level of Care: Express Care Visit Vital Signs Vital signs: Vital Signs Temperature 36.4 C 11/10/24 10:56 Pulse Rate 80 11/10/24 10:56 Respiratory Rate 16 11/10/24 10:56 Blood Pressure 121/78 11/10/24 10:56 Pulse Oximetry 99 11/10/24 10:56 Oxygen Delivery Room Air 11/10/24 10:56 Temperature 36.4 C 11/10/24 10:56 Pulse Rate 80 11/10/24 10:56 Respiratory Rate 16 11/10/24 10:56 Blood Pressure 121/78 11/10/24 10:56 Pulse Oximetry 99 11/10/24 10:56 Oxygen Delivery Room Air 11/10/24 10:56 Reviewed Medical Decision Making MDM Narrative Medical decision making narrative: rash is most likely pityriasis rosea. Discussed diagnosis with patient. Will treat with triamcinolone and hydroxyzine for itching. Recommend he use a moisturizer at least twice a day. 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 Exam findings show no acute concerns or changes; patient is non-toxic appearing and is in no distress. Patient is appropriate for outpatient treatment and follow-up. Vital Signs Vital Signs: Vital Signs Temperature 36.4 C 11/10/24 10:56 Pulse Rate 80 11/10/24 10:56 Respiratory Rate 16 11/10/24 10:56 Blood Pressure 121/78 11/10/24 10:56 Pulse Oximetry 99 11/10/24 10:56 Oxygen Delivery Room Air 11/10/24 10:56 Temperature 36.4 C 11/10/24 10:56 Pulse Rate 80 11/10/24 10:56 Respiratory Rate 16 11/10/24 10:56 Blood Pressure 121/78 11/10/24 10:56 Pulse Oximetry 99 11/10/24 10:56 Oxygen Delivery Room Air 11/10/24 10:56 Discharge Plan Discharge Clinical Impression: Pityriasis rosea Patient Disposition: Home Condition: Stable Instructions: Pityriasis rosea (ED) Additional Instructions: Take medications as prescribed. Hydroxyzine may cause drowsiness, do not drive while taking it. Apply a non fragrance moisturizer two times a day. Read over discharge packet regarding pityriasis rosea. Rash can last several weeks But up to 5 months. Follow-up with your division leader if not improving. Patient Language: Vietnamese Prescriptions: New triamcinolone acetonide 0.1 % cream 1 applic topical TID PRN (Reason: itching) Qty: 453.6 0RF hydroxyzine HCl 25 mg tablet 25 mg PO Q6-8H PRN (Reason: itching) Qty: 30 0RF No Action lamotrigine 150 mg tablet 150 mg PO DAILY pregabalin 150 mg capsule 150 mg PO DAILY tizanidine 4 mg tablet 4 mg PO DAILY jfoqjjcqft-cysmrbzodkhkb-cdbp 50-325-40 mg tablet 1 tablet PO DAILY topiramate 25 mg tablet tramadol 50 mg tablet divalproex 125 mg tablet,delayed release (DR/EC) PO Follow-up/Referrals: Jacque,Tristan Montejo MD [Primary Care Provider] - Time of Disposition: 11:17
== END 2024-11-10 11:20 | disposition home or self-care (01) ==
PROVIDERS: Emergency Provider Nurse Practitioner Family; PCP Internal Medicine
DX: L42 Pityriasis rosea (principal); F17.210 Nicotine dependence, cigarettes, uncomplicated; M19.90 Unspecified osteoarthritis, unspecified site; Z86.73 Personal history of transient ischemic attack (TIA), and cerebral infarction without residual deficits; Z85.9 Personal history of malignant neoplasm, unspecified
CPT/HCPCS: 99213; G0463